=== PATIENT | male | born 1940 | race Caucasian/White ===

== ENCOUNTER 2016-07-16 14:25 | Inpatient (IN) | payer MEDICARE, OTHER ==
[~2016-07-16] VITALS: Ht 185.4 cm; Wt 79.1 kg
[2016-07-16] MEDS ORDERED: ASPI-496 PO (15:10)
[2016-07-16] MEDS ORDERED: LISI1TAB3 PO (15:10)
[2016-07-16] MEDS ORDERED: CALC-451 PO (15:11)
[2016-07-16] MEDS ORDERED: ETAN50PE INJ (15:13)
[2016-07-16] MEDS ORDERED: VANCOMYCIN PER PHARMACY IV ONE (16:30)
[2016-07-16] MEDS ORDERED: SODIUM CHLORIDE 0.9% 1,000 ML IV ONE (16:30)
[2016-07-16] MEDS ORDERED: DIPH,PERTUSS(ACELL),TET VAC/PF 0.5 ML IM-VACC ONE ×2 (16:30→17:18)
[2016-07-16] MEDS ORDERED: SODIUM CHLORIDE FLUSH 10ML SYR IVF ONE (16:30)
[2016-07-16] MEDS ORDERED: VANCOMYCIN 1,600 MG in SODIUM CHLORIDE 0.9% 250 ML IV ONE (17:00)
[2016-07-16 17:08] LABS: HEMOGLOBIN 14.8 g/dL (13.7-18.0)
[2016-07-16 17:20] LABS: BLOOD UREA NITROGEN 19 mg/dL (7-18)
[2016-07-16] MEDS ORDERED: SODIUM CHLORIDE FLUSH 10ML SYR IVF PRN (18:30)
[2016-07-16] MEDS ORDERED: NS + 20MEQ KCL 1,000 ML IV SCH (19:01)
[2016-07-16] MEDS ORDERED: ACETAMINOPHEN 325 MG TABLET PO PRN (19:30)
[2016-07-16] MEDS ORDERED: ONDANSETRON 2MG/ML, 2ML IVP PRN (19:30)
[2016-07-16] MEDS ORDERED: MORPHINE SULFATE 4 MG/ML, 1ML IVPush PRN (19:30)
[2016-07-16] MEDS ORDERED: DOCUSATE 100 MG CAPSULE PO PRN (19:30)
[2016-07-16] MEDS ORDERED: POLYETHYLENE GLYCOL 17 GM PACKET PO PRN (19:30)
[2016-07-16] MEDS ORDERED: VANCOMYCIN PER PHARMACY MC PRN (19:30)
[2016-07-16] MEDS: AMPICILLIN/SULBACTAM 3 GM in SODIUM CHLORIDE 0.9% 100 ML IV SCH (20:32)
[2016-07-16 21:40] VITALS: BP 157/91
[2016-07-16] MEDS ORDERED: PHARMACOKINETIC MONITORING MC PRN (22:30)
[2016-07-16] MEDS ORDERED: PHARMACOKINETIC CONSULTATION MC ONE (22:30)
[2016-07-17 00:31] VITALS: BP 157/91
[2016-07-17] MEDS: AMPICILLIN/SULBACTAM 3 GM in SODIUM CHLORIDE 0.9% 100 ML IV SCH ×4 (01:05→19:56)
[2016-07-17 01:55] VITALS: BP 134/77
[2016-07-17 05:48] LABS: BLOOD UREA NITROGEN 18 mg/dL (7-18)
[2016-07-17 07:15] VITALS: BP 119/72
[2016-07-17] MEDS: HYDROCHLOROTHIAZIDE 12.5 MG CAPSULE PO SCH (07:53)
[2016-07-17] MEDS: SENNA/DOCUSATE TABLET PO SCH (07:54)
[2016-07-17] MEDS: LISINOPRIL 10 MG TABLET PO SCH (07:54)
[2016-07-17] MEDS ORDERED: FENTANYL PF 100 MCG/2ML ONE (08:59)
[2016-07-17] MEDS ORDERED: BUPIVACAINE/PF-EPI 0.5% 1:200K ONE (09:32)
[2016-07-17] MEDS ORDERED: MIDAZOLAM 1 MG/ML, 2ML ONE (09:35)
[2016-07-17] MEDS ORDERED: PROPOFOL 10 MG/ML, 20ML ONE (09:49)
[2016-07-17] MEDS ORDERED: CEFAZOLIN 1,000 MG ONE (09:49)
[2016-07-17] MEDS ORDERED: OXYcodone 5 MG/5 ML ORAL.SOL UDC PO PRN (10:00)
[2016-07-17] MEDS ORDERED: ACETAMINOPHEN 325 MG TABLET PO PRN (10:00)
[2016-07-17] MEDS ORDERED: hydrALAzine 20 MG/ML, 1ML IV PRN (10:00)
[2016-07-17] MEDS ORDERED: MEPERIDINE/PF 25MG/0.5ML IVPush PRN (10:00)
[2016-07-17] MEDS ORDERED: HYDROmorphone 1 MG/ML, 1ML IV PRN (10:00)
[2016-07-17] MEDS ORDERED: ONDANSETRON 2MG/ML, 2ML IVPush PRN (10:00)
[2016-07-17] MEDS ORDERED: LABETALOL 5MG/ML, 20ML IV PRN (10:00)
[2016-07-17] MEDS ORDERED: FENTANYL PF 100 MCG/2ML IV PRN (10:00)
[2016-07-17] MEDS ORDERED: METOCLOPRAMIDE 5 MG/ML, 2ML IV PRN (10:00)
[2016-07-17] MEDS ORDERED: PROMETHAZINE 25 MG/ML, 1ML IV PRN (10:00)
[2016-07-17] MEDS ORDERED: NEOSPORIN OINT, 15GM ONE (10:21)
[2016-07-17] MEDS ORDERED: OXYcodone 5 MG/5 ML ORAL.SOL UDC ONE (10:57)
[2016-07-17 12:26] VITALS: BP 139/74
[2016-07-17] MEDS ORDERED: VANCOMYCIN 1,600 MG in SODIUM CHLORIDE 0.9% 250 ML IV SCH (17:00)
[2016-07-17] MEDS: HYDROcodone/APAP 5/325 TABLET PO PRN ×2 (19:00→20:01)
[2016-07-17 19:45] VITALS: BP 136/67
[2016-07-18] MEDS: HYDROcodone/APAP 5/325 TABLET PO PRN ×3 (00:13→19:04)
[2016-07-18 00:15] VITALS: BP 123/65
[2016-07-18] MEDS: AMPICILLIN/SULBACTAM 3 GM in SODIUM CHLORIDE 0.9% 100 ML IV SCH ×4 (01:46→19:22)
[2016-07-18 07:52] VITALS: BP 123/65
[2016-07-18] MEDS: LISINOPRIL 10 MG TABLET PO SCH ×2 (09:00→10:42)
[2016-07-18] MEDS: HYDROCHLOROTHIAZIDE 12.5 MG CAPSULE PO SCH ×2 (09:00→10:42)
[2016-07-18] MEDS: SENNA/DOCUSATE TABLET PO SCH (10:43)
[2016-07-18 13:31] VITALS: BP 130/69
[2016-07-18] MEDS: VANCOMYCIN 1,600 MG in SODIUM CHLORIDE 0.9% 250 ML IV SCH (17:28)
[2016-07-18 19:07] VITALS: BP 145/76
[2016-07-19 00:37] VITALS: BP 151/76
[2016-07-19] MEDS: AMPICILLIN/SULBACTAM 3 GM in SODIUM CHLORIDE 0.9% 100 ML IV SCH ×4 (01:39→19:58)
[2016-07-19] MEDS: SENNA/DOCUSATE TABLET PO SCH (07:43)
[2016-07-19] MEDS: LISINOPRIL 10 MG TABLET PO SCH (07:43)
[2016-07-19] MEDS: HYDROCHLOROTHIAZIDE 12.5 MG CAPSULE PO SCH (07:43)
[2016-07-19 08:30] VITALS: BP 136/73
[2016-07-19] MEDS: HYDROcodone/APAP 5/325 TABLET PO PRN ×3 (10:17→20:05)
[2016-07-19] MEDS: VANCOMYCIN 1,600 MG in SODIUM CHLORIDE 0.9% 250 ML IV SCH (10:18)
[2016-07-19 13:06] VITALS: BP 123/73
[2016-07-19] MEDS: ENOXAPARIN 40 MG/0.4 ML SQ SCH (15:14)
[2016-07-19 19:26] VITALS: BP 128/69
[2016-07-20] MEDS: AMPICILLIN/SULBACTAM 3 GM in SODIUM CHLORIDE 0.9% 100 ML IV SCH ×4 (01:04→19:52)
[2016-07-20] MEDS: HYDROcodone/APAP 5/325 TABLET PO PRN ×4 (01:14→18:42)
[2016-07-20 02:02] VITALS: BP 119/69
[2016-07-20 03:00] VITALS: BP 130/73
[2016-07-20] MEDS: VANCOMYCIN 1,600 MG in SODIUM CHLORIDE 0.9% 250 ML IV SCH ×2 (04:49→23:29)
[2016-07-20 07:34] VITALS: BP 134/76
[2016-07-20] MEDS: SENNA/DOCUSATE TABLET PO SCH (08:01)
[2016-07-20] MEDS: LISINOPRIL 10 MG TABLET PO SCH (08:02)
[2016-07-20] MEDS: HYDROCHLOROTHIAZIDE 12.5 MG CAPSULE PO SCH (08:02)
[2016-07-20 13:30] VITALS: BP 141/80
[2016-07-20] MEDS: ENOXAPARIN 40 MG/0.4 ML SQ SCH (14:58)
[2016-07-20 20:02] VITALS: BP 141/64
[2016-07-21] MEDS: HYDROcodone/APAP 5/325 TABLET PO PRN ×3 (01:13→23:22)
[2016-07-21] MEDS: AMPICILLIN/SULBACTAM 3 GM in SODIUM CHLORIDE 0.9% 100 ML IV SCH ×4 (02:03→19:53)
[2016-07-21 02:39] VITALS: BP 156/78
[2016-07-21 07:06] VITALS: BP 148/73
[2016-07-21] MEDS: HYDROCHLOROTHIAZIDE 12.5 MG CAPSULE PO SCH (08:05)
[2016-07-21] MEDS: LISINOPRIL 10 MG TABLET PO SCH (08:06)
[2016-07-21] MEDS: SENNA/DOCUSATE TABLET PO SCH (08:06)
[2016-07-21 13:00] VITALS: BP 153/82
[2016-07-21] MEDS: ENOXAPARIN 40 MG/0.4 ML SQ SCH (14:33)
[2016-07-21 20:00] VITALS: BP 133/80
[2016-07-21] MEDS: VANCOMYCIN 1,600 MG in SODIUM CHLORIDE 0.9% 250 ML IV SCH (23:14)
[2016-07-22 02:28] VITALS: BP 153/77
[2016-07-22] MEDS: AMPICILLIN/SULBACTAM 3 GM in SODIUM CHLORIDE 0.9% 100 ML IV SCH ×4 (02:31→20:54)
[2016-07-22 06:58] VITALS: BP 147/79
[2016-07-22] MEDS: LISINOPRIL 10 MG TABLET PO SCH (07:51)
[2016-07-22] MEDS: SENNA/DOCUSATE TABLET PO SCH (07:51)
[2016-07-22] MEDS: HYDROCHLOROTHIAZIDE 12.5 MG CAPSULE PO SCH (07:51)
[2016-07-22] MEDS: HYDROcodone/APAP 5/325 TABLET PO PRN ×2 (12:20→21:04)
[2016-07-22] MEDS: ENOXAPARIN 40 MG/0.4 ML SQ SCH (15:29)
[2016-07-22 15:48] VITALS: BP 152/91
[2016-07-22 19:43] VITALS: BP 129/78
[2016-07-22] MEDS: VANCOMYCIN 1,600 MG in SODIUM CHLORIDE 0.9% 250 ML IV SCH (22:48)
[2016-07-23 01:32] VITALS: BP 158/83
[2016-07-23] MEDS: AMPICILLIN/SULBACTAM 3 GM in SODIUM CHLORIDE 0.9% 100 ML IV SCH ×3 (02:25→14:19)
[2016-07-23] MEDS: HYDROCHLOROTHIAZIDE 12.5 MG CAPSULE PO SCH (08:58)
[2016-07-23] MEDS: SENNA/DOCUSATE TABLET PO SCH ×2 (08:58→09:00)
[2016-07-23] MEDS: LISINOPRIL 10 MG TABLET PO SCH (08:58)
[2016-07-23] MEDS: HYDROcodone/APAP 5/325 TABLET PO PRN (08:59)
[2016-07-23 09:32] VITALS: BP 151/79
[2016-07-23 13:12] VITALS: BP 131/79
[2016-07-23 14:08] LABS: ASPARTATE AMINO TRANSFERASE 26 U/L (15-37); BLOOD UREA NITROGEN 10 mg/dL (7-18)
[2016-07-23] MEDS ORDERED: HYDR12.53 PO (14:57)
[2016-07-23] MEDS ORDERED: HYDR-3240 PO (15:51)
[2016-07-23] MEDS ORDERED: ETANERCEPT 50 MG HOMEINJ SCH (19:00)
== END 2016-07-23 15:55 | disposition home or self-care (01) | DRG 475 ==
LOC: ED 15:48 → EDIP 18:29 → SUATTDRO 18:45 → 4NOR 21:30
PROVIDERS: ADMIT Family Medicine; ATTEND Family Medicine
PROC: 0Y6M0ZF Detachment at Right Foot, Partial 5th Ray, Open Approach (ICD-10-PCS; principal; 2016-07-17 09:30)
PROC: 02HV33Z Insertion of Infusion Device into Superior Vena Cava, Percutaneous Approach (ICD-10-PCS; 2016-07-20)
PROC: B548ZZA Ultrasonography of Superior Vena Cava, Guidance (ICD-10-PCS; 2016-07-20)
DX: M86.171 Other acute osteomyelitis, right ankle and foot (principal); L03.115 Cellulitis of right lower limb; E87.1 Hypo-osmolality and hyponatremia; D84.8 Other specified immunodeficiencies; M06.9 Rheumatoid arthritis, unspecified; I10 Essential (primary) hypertension; H26.9 Unspecified cataract; M13.0 Polyarthritis, unspecified; S91.301A Unspecified open wound, right foot, initial encounter; F17.210 Nicotine dependence, cigarettes, uncomplicated; T39.4X5A Adverse effect of antirheumatics, not elsewhere classified, initial encounter
CPT/HCPCS: 36415; 36569; 76937; 77001; 80048; 80053; 80202; 82040; 82550; 82607; 82746; 83605; 84145; 85025; 85651; 86140; 87015; 87040; 87070; 87075; 87077; 87102; 87116; 87176; 87186; 87205; 87206; 88305; 88311; 90471; 90715; 93005; 96365; 96366; 96367; J0295; J0690; J1650; J2250; J2704; J3010; J3370; J3480; C1751; J7030; J7050

== ENCOUNTER 2016-08-12 11:29 | Day surgery (SDC) | payer MEDICARE, OTHER ==
[~2016-08-12] VITALS: Ht 185.4 cm; Wt 79.0 kg
[~2016-08-12 11:29] MED LIST: ASPI-496 PO; CALC-451 PO; ETAN50PE INJ; HYDR-3240 PO; HYDR12.53 PO; LISI1TAB3 PO
[2016-08-12 12:12] VITALS: BP 101/66
[2016-08-12] MEDS ORDERED: LACTATED RINGERS 1,000 ML IV SCH (12:15)
[2016-08-12] MEDS ORDERED: DAPTOMYCIN IV (12:33)
[2016-08-12] MEDS ORDERED: A REDS PO (12:33)
[2016-08-12] MEDS ORDERED: ENBREL INJ (12:33)
[2016-08-12] MEDS ORDERED: MIDAZOLAM 1 MG/ML, 2ML ONE (13:23)
[2016-08-12] MEDS ORDERED: FENTANYL PF 250 MCG/5ML ONE (13:23)
[2016-08-12] MEDS ORDERED: PROPOFOL 10 MG/ML, 20ML ONE (13:33)
[2016-08-12] MEDS ORDERED: ONDANSETRON 2MG/ML, 2ML ONE (13:33)
[2016-08-12] MEDS ORDERED: LABETALOL 5MG/ML, 20ML IV PRN (14:00)
[2016-08-12] MEDS ORDERED: HYDROmorphone 1 MG/ML, 1ML IV PRN (14:00)
[2016-08-12] MEDS ORDERED: ONDANSETRON 2MG/ML, 2ML IVPush PRN (14:00)
[2016-08-12] MEDS ORDERED: OXYcodone 5 MG/5 ML ORAL.SOL UDC PO PRN (14:00)
[2016-08-12] MEDS ORDERED: ACETAMINOPHEN 325 MG TABLET PO PRN (14:00)
[2016-08-12] MEDS ORDERED: hydrALAzine 20 MG/ML, 1ML IV PRN (14:00)
[2016-08-12] MEDS ORDERED: FENTANYL PF 100 MCG/2ML IV PRN (14:00)
[2016-08-12] MEDS ORDERED: OXYcodone 5 MG/5 ML ORAL.SOL UDC ONE (14:43)
[2016-08-12] MEDS ORDERED: ACETAMINOPHEN 325 MG TABLET ONE (14:43)
[2016-08-12] MEDS ORDERED: ACETAMINOPHEN 650 MG/20.3 ML UDC ONE (14:43)
== END 2016-08-12 16:35 ==
LOC: OUT 11:29
PROVIDERS: ATTEND Orthopaedic Surgery
DX: T81.30XA Disruption of wound, unspecified, initial encounter (principal); Y83.9 Surgical procedure, unspecified as the cause of abnormal reaction of the patient, or of later complication, without mention of misadventure at the time of the procedure; Y92.9 Unspecified place or not applicable
CPT/HCPCS: 28104; 87070; 87075; 87077; 87176; 87186; 87205; 88304; 88311; J2250; J2405; J2704; J3010; J7120

== ENCOUNTER 2018-01-30 17:21 | Emergency (ER) | payer MEDICARE, OTHER ==
[~2018-01-30] VITALS: Ht 182.9 cm; Wt 73.0 kg
[~2018-01-30 17:21] MED LIST changes: +A REDS PO; +DAPTOMYCIN IV; +ENBREL INJ; +MULT-6 PO
[2018-01-30 17:47] LABS: BASOPHILS # (AUTO) 0.06 x10^3/uL (0-0.1); BASOPHILS % (AUTO) 1 % (0-1); EOSINOPHILS % (AUTO) 4 % (1-7); LYMPHOCYTES # (AUTO) 2.89 x10^3/uL (1-3.4); LYMPHOCYTES % (AUTO) 32 % (22-44); MD NO; MEAN CORPUSCULAR HEMOGLOBIN 34.3 pg (27.5-34.5); MEAN CORPUSCULAR HGB CONC 34.2 g/dL (33.2-36.2); MEAN CORPUSCULAR VOLUME 100.1 fL (81-97); MEAN PLATELET VOLUME 7.6 fL (7.4-10.4); MONOCYTES # (AUTO) 1.04 x10^3/uL (0.2-0.8); MONOCYTES % (AUTO) 11 % (2-9); NEUTROPHILS # (AUTO) 4.73 x10^3/uL (1.8-6.8); NEUTROPHILS % (AUTO) 52 % (42-75); PLATELET COUNT 288 x10^3/uL (130-400); RED BLOOD COUNT 4.62 x10^6/uL (4.38-5.82); RED CELL DISTRIBUTION WIDTH 15.4 % (9.4-14.8)
[2018-01-30 17:56] LABS: ALANINE AMINOTRANSFERASE 20 U/L (12-78); ALBUMIN 3.3 g/dL (3.4-5.0); ANION GAP 11 mmol/L (5-15); CALCIUM 9.4 mg/dL (8.5-10.1); CHLORIDE 102 mmol/L (98-107); CREATININE 1.21 mg/dL (0.7-1.3)
[2018-01-30 17:58] LABS: ALKALINE PHOSPHATASE 83 U/L (45-117); BILIRUBIN,TOTAL 0.3 mg/dL (0.2-1.0); TOTAL PROTEIN 8.3 g/dL (6.4-8.2)
[2018-01-30 18:04] LABS: HCT (SEDRATE) 46.2 % (39.2-51.8)
[2018-01-30 19:03] VITALS: BP 138/77
== END 2018-01-30 19:38 | disposition home or self-care (01) ==
LOC: ED 19:10
DX: L03.115 Cellulitis of right lower limb (principal); I10 Essential (primary) hypertension; F17.210 Nicotine dependence, cigarettes, uncomplicated; Z89.421 Acquired absence of other right toe(s)
CPT/HCPCS: 36415; 80053; 85025; 85651; 86141; 99285

== ENCOUNTER 2018-02-28 10:07 | Inpatient (IN) | payer MEDICARE, OTHER ==
[~2018-02-28] VITALS: Ht 185.4 cm; Wt 72.0 kg
[2018-02-28] MEDS ORDERED: ADENOSINE 6 MG/2 ML IVPush ONE ×2 (10:30)
[2018-02-28] MEDS ORDERED: ADENOSINE 6 MG/2 ML ONE (10:37)
[2018-02-28] MEDS ORDERED: ONDANSETRON 2MG/ML, 2ML ONE (10:40)
[2018-02-28] MEDS ORDERED: DILTIAZEM 5 MG/ML, 5ML ONE (10:45)
[2018-02-28 11:00] LABS: BASOPHILS # (AUTO) 0.03 x10^3/uL (0-0.1); BASOPHILS % (AUTO) 0 % (0-1); EOSINOPHILS % (AUTO) 1 % (1-7); LYMPHOCYTES # (AUTO) 1.24 x10^3/uL (1-3.4); LYMPHOCYTES % (AUTO) 15 % (22-44); MD NO; MEAN CORPUSCULAR HEMOGLOBIN 33.3 pg (27.5-34.5); MEAN CORPUSCULAR HGB CONC 33.3 g/dL (33.2-36.2); MEAN CORPUSCULAR VOLUME 100.1 fL (81-97); MEAN PLATELET VOLUME 8.3 fL (7.4-10.4); MONOCYTES # (AUTO) 0.71 x10^3/uL (0.2-0.8); MONOCYTES % (AUTO) 9 % (2-9); NEUTROPHILS # (AUTO) 6.07 x10^3/uL (1.8-6.8); NEUTROPHILS % (AUTO) 74 % (42-75); PLATELET COUNT 268 x10^3/uL (130-400); RED BLOOD COUNT 5.22 x10^6/uL (4.38-5.82); RED CELL DISTRIBUTION WIDTH 15.6 % (9.4-14.8)
[2018-02-28] MEDS ORDERED: DILTIAZEM 5 MG/ML, 5ML IVPush ONE ×3 (11:00→11:30)
[2018-02-28] MEDS ORDERED: ONDANSETRON 2MG/ML, 2ML IVPush ONE (11:00)
[2018-02-28] MEDS ORDERED: DILTIAZEM 125 MG in SODIUM CHLORIDE 0.9% 100 ML IV PRN (11:00)
[2018-02-28 11:10] LABS: ALANINE AMINOTRANSFERASE 23 U/L (12-78); ALBUMIN 3.6 g/dL (3.4-5.0); ANION GAP 6 mmol/L (5-15); CALCIUM 9.8 mg/dL (8.5-10.1); CHLORIDE 102 mmol/L (98-107)
[2018-02-28 11:12] LABS: ALKALINE PHOSPHATASE 87 U/L (45-117); BILIRUBIN,TOTAL 0.7 mg/dL (0.2-1.0); TOTAL PROTEIN 9.5 g/dL (6.4-8.2)
[2018-02-28] MEDS ORDERED: VIT1TABL32 PO (11:23)
[2018-02-28] MEDS ORDERED: ETAN50DI2 SQ (11:27)
[2018-02-28 11:31] LABS: INTERNATIONAL NORMALIZED RATIO 0.97 (0.93-1.1)
[2018-02-28] MEDS ORDERED: DIGOXIN 0.25 MG/ML, 2ML ONE (11:40)
[2018-02-28] MEDS ORDERED: DIGOXIN 0.25 MG/ML, 2ML IVPush ONE (12:00)
[2018-02-28] MEDS ORDERED: EPINEPHRINE SYRINGE 0.1 MG/ML, 10ML ONE (12:05)
[2018-02-28] MEDS ORDERED: ATROPINE SYRINGE 0.1 MG/ML, 10ML ONE (12:12)
[2018-02-28] MEDS ORDERED: HEPARIN 25,000 UNITS/500ML PMX 500 ML IV PRN (12:30)
[2018-02-28] MEDS ORDERED: HEPARIN 5,000 UNITS/ML, 1ML IV ONE (12:30)
[2018-02-28] MEDS ORDERED: HEPARIN 5,000 UNITS/ML, 1ML IV PRN (12:30)
[2018-02-28] MEDS ORDERED: SODIUM CHLORIDE 0.9% 1,000 ML IV SCH (12:55)
[2018-02-28] MEDS ORDERED: CEFAZOLIN PMX 1GM/50ML 50 ML IVPB ONE (13:00)
[2018-02-28] MEDS ORDERED: ONDANSETRON 2MG/ML, 2ML IVPush PRN (13:00)
[2018-02-28] MEDS ORDERED: ONDANSETRON ODT 4 MG PO PRN (13:00)
[2018-02-28 13:12] LABS: FREE T4 (FREE THYROXINE) 1.12 ng/dL (0.76-1.46); THYROID STIMULATING HORMONE 1.26 mIU/L (0.358-3.740)
[2018-02-28] MEDS ORDERED: DIPHENHYDRAMINE 50 MG/ML, 1ML ONE (13:34)
[2018-02-28] MEDS ORDERED: CEFAZOLIN PMX 1GM/50ML 50 ML ONE (13:34)
[2018-02-28] MEDS ORDERED: FENTANYL PF 100 MCG/2ML ONE (13:34)
[2018-02-28] MEDS ORDERED: LIDOCAINE/PF 1%, 30ML ONE (13:34)
[2018-02-28] MEDS ORDERED: CEFAZOLIN 1,000 MG ONE (13:34)
[2018-02-28] MEDS ORDERED: MIDAZOLAM 1 MG/ML, 2ML ONE (13:34)
[2018-02-28] MEDS ORDERED: HOLD MEDICATION MC PRN (15:30)
[2018-02-28] MEDS ORDERED: METOPROLOL TARTRATE 25 MG TABLET PO SCH (15:30)
[2018-02-28] MEDS: SODIUM CHLORIDE 0.9% 1,000 ML IV SCH (15:49)
[2018-02-28 15:59] VITALS: BP 108/71
[2018-02-28 16:28] LABS: TROPONIN I 0.268 ng/mL (0.000-0.045)
[2018-02-28] MEDS ORDERED: MAGNESIUM SULF. PMX 20GM/500ML 500 ML IV PRN (16:30)
[2018-02-28] MEDS ORDERED: MAGNESIUM SULFATE PMX 2GM/50ML 50 ML IV ONE (17:30)
[2018-02-28] MEDS: SOTALOL 80MG TABLET PO SCH (17:37)
[2018-02-28 18:47] VITALS: BP 116/75
[2018-02-28] MEDS: SODIUM CHLORIDE FLUSH 10ML SYR IVF SCH (21:00)
[2018-02-28] MEDS: CEFAZOLIN PMX 1GM/50ML 50 ML IVPB SCH (21:32)
[2018-02-28 21:35] LABS: TROPONIN I 0.594 ng/mL (0.000-0.045)
[2018-02-28] MEDS: HYDROcodone/APAP 5/325 TABLET PO PRN (23:00)
[2018-03-01] MEDS: METOPROLOL TARTRATE 25 MG TABLET PO SCH ×3 (00:23→20:10)
[2018-03-01 01:14] VITALS: BP 147/83
[2018-03-01 05:11] LABS: BASOPHILS # (AUTO) 0.11 x10^3/uL (0-0.1); BASOPHILS % (AUTO) 1 % (0-1); EOSINOPHILS # (AUTO) 0.12 x10^3/uL (0-0.4); EOSINOPHILS % (AUTO) 2 % (1-7); LYMPHOCYTES # (AUTO) 2.05 x10^3/uL (1-3.4); LYMPHOCYTES % (AUTO) 25 % (22-44); MD NO; MEAN CORPUSCULAR HEMOGLOBIN 33.8 pg (27.5-34.5); MEAN CORPUSCULAR HGB CONC 33.7 g/dL (33.2-36.2); MEAN CORPUSCULAR VOLUME 100.4 fL (81-97); MEAN PLATELET VOLUME 7.8 fL (7.4-10.4); MONOCYTES # (AUTO) 0.98 x10^3/uL (0.2-0.8); MONOCYTES % (AUTO) 12 % (2-9); NEUTROPHILS # (AUTO) 4.83 x10^3/uL (1.8-6.8); NEUTROPHILS % (AUTO) 60 % (42-75); PLATELET COUNT 246 x10^3/uL (130-400); RED BLOOD COUNT 4.26 x10^6/uL (4.38-5.82); RED CELL DISTRIBUTION WIDTH 15.3 % (9.4-14.8)
[2018-03-01 05:19] LABS: ALANINE AMINOTRANSFERASE 18 U/L (12-78); ALBUMIN 2.7 g/dL (3.4-5.0); ANION GAP 7 mmol/L (5-15); CALCIUM 8.9 mg/dL (8.5-10.1); CHLORIDE 105 mmol/L (98-107); CREATININE 0.94 mg/dL (0.7-1.3)
[2018-03-01 05:23] LABS: ALKALINE PHOSPHATASE 59 U/L (45-117); BILIRUBIN,TOTAL 0.5 mg/dL (0.2-1.0); CHOL/HDL RATIO 3.2; CHOLESTEROL, TOTAL 123 mg/dL (140-239); HDL CHOL % 32 % (26-37); HDL CHOLESTEROL (DIRECT) 39 mg/dL (40-60); LDL CHOLESTEROL,CALCULATED 66 mg/dL (54-169); LDL/HDL RATIO 1.7 (0.5-3.0); TRIGLYCERIDES 91 mg/dL (50-200); VLDL CHOLESTEROL 18 mg/dL (0-25)
[2018-03-01] MEDS: SOTALOL 80MG TABLET PO SCH ×2 (05:59→17:42)
[2018-03-01] MEDS: SODIUM CHLORIDE 0.9% 1,000 ML IV SCH ×2 (06:00→15:30)
[2018-03-01] MEDS: CEFAZOLIN PMX 1GM/50ML 50 ML IVPB SCH ×2 (06:00→13:16)
[2018-03-01 06:59] VITALS: BP 153/79
[2018-03-01] MEDS: SODIUM CHLORIDE FLUSH 10ML SYR IVF SCH ×2 (07:57→20:11)
[2018-03-01] MEDS ORDERED: METOPROLOL TARTRATE 25 MG TABLET PO SCH (09:00)
[2018-03-01 12:25] VITALS: BP 138/87
[2018-03-01 19:56] VITALS: BP 151/79
[2018-03-02 01:22] VITALS: BP 144/72
[2018-03-02] MEDS: HYDROcodone/APAP 5/325 TABLET PO PRN ×2 (04:04→13:38)
[2018-03-02] MEDS: SOTALOL 80MG TABLET PO SCH (05:38)
[2018-03-02] MEDS: METOPROLOL TARTRATE 25 MG TABLET PO SCH (07:17)
[2018-03-02] MEDS: SODIUM CHLORIDE FLUSH 10ML SYR IVF SCH (07:17)
[2018-03-02 08:00] VITALS: BP 143/83
[2018-03-02] MEDS ORDERED: APIXABAN 5 MG TABLET PO SCH (09:00)
[2018-03-02] MEDS ORDERED: APIX5TAB PO (13:37)
[2018-03-02] MEDS ORDERED: SOTA80TA18 PO (13:37)
[2018-03-02] MEDS ORDERED: METO25TA35 PO (13:37)
== END 2018-03-02 15:38 | disposition home or self-care (01) | DRG 242 ==
LOC: ED 10:27 → EDIP 11:24 → 5SO 15:23
PROVIDERS: ADMIT Internal Medicine; ATTEND Internal Medicine
PROC: 02H63JZ Insertion of Pacemaker Lead into Right Atrium, Percutaneous Approach (ICD-10-PCS; principal; 2018-02-28)
PROC: 02HK3JZ Insertion of Pacemaker Lead into Right Ventricle, Percutaneous Approach (ICD-10-PCS; 2018-02-28)
PROC: 0JH606Z Insertion of Pacemaker, Dual Chamber into Chest Subcutaneous Tissue and Fascia, Open Approach (ICD-10-PCS; 2018-02-28)
PROC: 5A2204Z Restoration of Cardiac Rhythm, Single (ICD-10-PCS; 2018-02-28)
PROC: 4B02XSZ Measurement of Cardiac Pacemaker, External Approach (ICD-10-PCS; 2018-03-01)
DX: I49.5 Sick sinus syndrome (principal); I50.33 Acute on chronic diastolic (congestive) heart failure; I48.92 Unspecified atrial flutter; E87.1 Hypo-osmolality and hyponatremia; D68.69 Other thrombophilia; E44.1 Mild protein-calorie malnutrition; I48.91 Unspecified atrial fibrillation; I45.19 Other right bundle-branch block; D75.89 Other specified diseases of blood and blood-forming organs; E74.39 Other disorders of intestinal carbohydrate absorption; F17.210 Nicotine dependence, cigarettes, uncomplicated; I10 Essential (primary) hypertension; J44.9 Chronic obstructive pulmonary disease, unspecified; M06.9 Rheumatoid arthritis, unspecified; Z71.6 Tobacco abuse counseling; Z79.82 Long term (current) use of aspirin; Z80.9 Family history of malignant neoplasm, unspecified; Z82.49 Family history of ischemic heart disease and other diseases of the circulatory system; Z89.421 Acquired absence of other right toe(s)
CPT/HCPCS: 33208; 36415; 71045; 80053; 80061; 83735; 84100; 84439; 84443; 84484; 85025; 85610; 85730; 92960; 93005; 93306; 96374; 96375; 99156; 99157; 99292; C1779; C1785; C1892; G0378; J0153; J0690; J2250; J2405; J3010; J3490; J1160; J1200; J3475; J7030

== ENCOUNTER 2018-03-04 20:40 | Emergency (ER) | payer MEDICARE, OTHER ==
[~2018-03-04] VITALS: Ht 185.4 cm; Wt 71.7 kg
[~2018-03-04 20:40] MED LIST changes: +APIX5TAB PO; +ETAN50DI2 SQ; +METO25TA35 PO; +SOTA80TA18 PO; +VIT1TABL32 PO
[2018-03-04 21:56] LABS: BASOPHILS # (AUTO) 0.03 x10^3/uL (0-0.1); BASOPHILS % (AUTO) 0 % (0-1); EOSINOPHILS # (AUTO) 0.53 x10^3/uL (0-0.4); EOSINOPHILS % (AUTO) 5 % (1-7); LYMPHOCYTES # (AUTO) 1.82 x10^3/uL (1-3.4); LYMPHOCYTES % (AUTO) 18 % (22-44); MD NO; MEAN CORPUSCULAR HEMOGLOBIN 34.6 pg (27.5-34.5); MEAN CORPUSCULAR HGB CONC 34.4 g/dL (33.2-36.2); MEAN CORPUSCULAR VOLUME 100.6 fL (81-97); MEAN PLATELET VOLUME 7.9 fL (7.4-10.4); MONOCYTES # (AUTO) 1.31 x10^3/uL (0.2-0.8); MONOCYTES % (AUTO) 13 % (2-9); NEUTROPHILS # (AUTO) 6.28 x10^3/uL (1.8-6.8); NEUTROPHILS % (AUTO) 63 % (42-75); PLATELET COUNT 236 x10^3/uL (130-400); RED BLOOD COUNT 3.88 x10^6/uL (4.38-5.82); RED CELL DISTRIBUTION WIDTH 14.6 % (9.4-14.8)
[2018-03-04 22:00] LABS: PROTHROMBIN TIME 10.3 Seconds (9.6-11.5)
[2018-03-04 22:02] LABS: ALANINE AMINOTRANSFERASE 17 U/L (12-78); ALBUMIN 2.9 g/dL (3.4-5.0); ANION GAP 10 mmol/L (5-15); CALCIUM 8.7 mg/dL (8.5-10.1); CHLORIDE 104 mmol/L (98-107)
[2018-03-04 22:04] LABS: ALKALINE PHOSPHATASE 64 U/L (45-117); BILIRUBIN,TOTAL 0.5 mg/dL (0.2-1.0); TOTAL PROTEIN 7.2 g/dL (6.4-8.2)
[2018-03-04 23:33] LABS: CULTURE INDICATED? YES; MICROSCOPIC INDICATED
[2018-03-05 00:18] VITALS: BP 129/74
== END 2018-03-05 00:20 | disposition home or self-care (01) ==
LOC: ED 21:18
DX: K59.00 Constipation, unspecified (principal); K56.41 Fecal impaction; R33.9 Retention of urine, unspecified; I10 Essential (primary) hypertension; I48.92 Unspecified atrial flutter; M86.9 Osteomyelitis, unspecified; Z95.0 Presence of cardiac pacemaker
CPT/HCPCS: 36415; 51702; 74021; 80053; 81001; 85025; 85610; 85730; 87086; 99285

== ENCOUNTER 2019-10-11 07:20 | Outpatient (CLI) | payer MEDICARE, OTHER ==
[~2019-10-11 07:20] MED LIST changes: +HYDR12.517 PO; -HYDR12.53 PO; +LISI1TAB23 PO; -LISI1TAB3 PO
== END 2019-10-11 23:59 | disposition home or self-care (01) ==
LOC: CVU 07:20
PROVIDERS: ATTEND Internal Medicine Cardiovascular Disease
DX: I65.23 Occlusion and stenosis of bilateral carotid arteries (principal); I71.4 Abdominal aortic aneurysm, without rupture; R09.89 Other specified symptoms and signs involving the circulatory and respiratory systems
CPT/HCPCS: 93880; 93978